=== PATIENT | male | born 1980 | race Caucasian/White ===

== ENCOUNTER 2018-10-01 10:09 | Emergency (ER) | payer SELFPAY ==
[2018-10-01 10:21] VITALS: O2SAT 96
--- NOTE | 2018-10-01 10:49 | RAD ---
Left ankle 3 views INDICATION: Ankle pain IMPRESSION: Osteophyte at the tip of the lateral malleolus. Mortise and syndesmosis appear congruent. No acute fracture or destructive process. Tiny bodies posterior recess and moderate to large ankle effusion. Minimal ankle osteophytes otherwise. Os peroneum. No focal osteochondral lesion or coalition noted. Electronically signed by: Josué Garrido MD 10/01/2018 10:47 AM CDT
--- NOTE | 2018-10-01 10:57 | ED.PDOC ---
History of Present Illness - General Chief Complaint: Lower Extremity Injury Stated Complaint: L ankle discomfort Time Seen by Provider: 10/01/18 10:23 Source: patient Exam Limitations: no limitations - History of Present Illness Initial Comments: the patient's 37-year-old male presenting to the emergency room after having twisted his ankle earlier this morning. He does have mild swelling. No gross deformity. No obvious crepitus. No bruising. He does appear to be neurovascularly intact. No other injuries. It is the left ankle. Timing/Duration: momentarily Severity: moderate Improving Factors: immobilization Worsening Factors: movement Associated Symptoms: denies symptoms Allergies/Adverse Reactions: Allergies Penicillins Allergy (Verified 10/01/18 10:21) Unknown Reported as a child Home Medications: Ambulatory Orders Tramadol HCl 50 mg PO Q8HR PRN #20 tab 10/01/18 Review of Systems - Review of Systems Constitutional: States: no symptoms reported EENTM: States: no symptoms reported Respiratory: States: no symptoms reported Cardiology: States: no symptoms reported Gastrointestinal/Abdominal: States: no symptoms reported Genitourinary: States: no symptoms reported Musculoskeletal: States: see HPI Skin: States: no symptoms reported Neurological: States: no symptoms reported Endocrine: States: no symptoms reported All other Systems: No Change from Baseline Past Medical History (General) - Patient Medical History Hx Stroke: No Hx Congestive Heart Failure: No Hx Diabetes: No Hx MRSA: No - Vaccination History Hx Tetanus, Diphtheria Vaccination: No Hx Influenza Vaccination: No Hx Pneumococcal Vaccination: No - Social History Hx Tobacco Use: Yes Hx Alcohol Use: Yes - Occasional Family Medical History - Family History Father Family History: No Known Living Status: Still Living Physical Exam - Physical Exam General Appearance: Alert, Comfortable, No apparent distress Eye Exam: bilateral normal Ears, Nose, Throat: hearing grossly normal, normal pharynx Neck: full range of motion, supple Respiratory: no respiratory distress, no accessory muscle use Cardiovascular/Chest: normal peripheral pulses, no edema Peripheral Pulses: dorsalis pedis,right: 2+, dorsalis pedis,left: 2+, posterior tibialis,right: 2+, posterior tibialis,left: 2+ Rectal Exam: deferred Back Exam: normal inspection Extremity: no pedal edema, no calf tenderness, normal capillary refill, other - see history of present illness 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 X-ray here shows no evidence of any fracture or current dislocation. He is neurovascularly intact at this time. He will be placed in a walking boot for the next couple of weeks. He can use [id number] Motrin or Aleve for discomfort and he will be written for a few tablets of tramadol to use for when the pain is at its worst. ER warnings were given. Follow-up with primary care doctor in 2 weeks for reevaluation. Departure - Departure Clinical Impression: Moderate left ankle sprain Qualifiers: Encounter type: initial encounter Qualified Code(s): S93.402A - Sprain of unspecified ligament of left ankle, initial encounter Disposition: Discharge to Home or Self Care Condition: Fair Departure Forms: ED Discharge - Pt. Copy, Patient Portal Self Enrollment Instructions: Ankle Sprain (DC) Diet: regular diet Activity: increase activity as tolerated Referrals: UNKNOWN,PHYSICIAN [Primary Care Provider] - 1-2 Weeks Prescriptions: Tramadol HCl 50 mg PO Q8HR PRN #20 tab PRN Reason: Moderate Pain Home Medications: Ambulatory Orders Tramadol HCl 50 mg PO Q8HR PRN #20 tab 10/01/18 Additional Instructions: the patient's 37-year-old male presents to emergency room secondary to a left ankle sprain. X-ray here shows no evidence of any fracture or current dislocation. He is neurovascularly intact at this time. He will be placed in a walking boot for the next couple of weeks. He can use [id number] Motrin or Aleve for discomfort and he will be written for a few tablets of tramadol to use for when the pain is at its worst. ER warnings were given. Follow-up with primary care doctor in 2 weeks for reevaluation.
[2018-10-01 11:52] VITALS: BP 136/82; TEMP 97.5
== END 2018-10-01 11:05 | disposition home or self-care (01) ==
LOC: ER 10:09
DX: S93.402A Sprain of unspecified ligament of left ankle, initial encounter (principal); Z87.891 Personal history of nicotine dependence; Z88.0 Allergy status to penicillin; X50.9XXA Other and unspecified overexertion or strenuous movements or postures, initial encounter; Y93.01 Activity, walking, marching and hiking; Y92.9 Unspecified place or not applicable